=== PATIENT | male | born 2000 | race Caucasian/White ===

== ENCOUNTER 2025-05-03 10:19 | Emergency (ER) | payer MEDICAID ==
[~2025-05-03] VITALS: Ht 188 cm; Wt 100.0 kg
[2025-05-03 10:37] VITALS: O2SAT 100
[2025-05-03] MEDS ORDERED: IBUP-2028 MT (13:22)
[2025-05-03] MEDS: KETOROLAC 30MG/ML VIAL IM ONE (14:04)
[2025-05-03 14:05] VITALS: BP 130/75; PULSE 67; RESP 18; TEMP 36.8; O2SAT 100
== END 2025-05-03 14:08 | disposition home or self-care (01) ==
LOC: ER 10:19
DX: S43.102A Unspecified dislocation of left acromioclavicular joint, initial encounter (principal); V18.4XXA Pedal cycle driver injured in noncollision transport accident in traffic accident, initial encounter; Y93.55 Activity, bike riding; Y92.89 Other specified places as the place of occurrence of the external cause; Y99.8 Other external cause status
CPT/HCPCS: 73030; 99283